=== PATIENT | female | born 1970 | race African-American/Black ===

== ENCOUNTER 2016-05-08 20:44 | Emergency (ER) | payer BC, OTHER ==
[~2016-05-08] VITALS: Ht 160 cm; Wt 81.7 kg
[2016-05-08 21:11] LABS: URINE BILIRUBIN NEGATIVE (Negative); URINE BLOOD TRACE (Negative); URINE COLOR YELLOW; URINE GLUCOSE-RANDOM* NEGATIVE (Negative); URINE KETONES NEGATIVE (Negative); URINE LEUKOCYTES-REFLEX TRACE (Negative); URINE PROTEIN (DIPSTICK) NEGATIVE (Negative); URINE SPECIFIC GRAVITY 1.025 (1.003-1.035); URINE UROBILINOGEN 0.2 E.U./dl (0.2-1.0)
[2016-05-08] MEDS ORDERED: XANAX 0.25 MG0.25 MG PO (21:33)
[2016-05-08] MEDS ORDERED: SINGULAIR 10 MG10 M1 PO (21:34)
[2016-05-08] MEDS ORDERED: TOPAMAX50 MG (21:34)
[2016-05-08] MEDS ORDERED: AZELASTINE137 MCG/0. NS (21:34)
[2016-05-08] MEDS ORDERED: FLEXERIL PO (21:34)
[2016-05-08] MEDS ORDERED: SERTRALINE HCL100 MG PO (21:34)
[2016-05-08 21:35] LABS: ABSOLUTE NEUTROPHILS 5.3 thou/uL (1.4-8.2); EOSINOPHILS 2.4 % (0.0-3.0); HEMATOCRIT 37.9 % (37.0-47.0); HEMOGLOBIN 12.5 gm/dL (12.0-15.0); LYMPHOCYTES 38.6 % (24.0-44.0); MCH 23.8 pg (26.0-34.0); MCHC 32.9 g/dL (28.0-37.0); MCV 72.5 fL (80.0-100.0); MONOCYTES 7.6 % (1.0-8.0); PLATELET COUNT 295 thou/uL (150-400); POLYS 50.4 % (36.0-66.0); RBC 5.23 mil/uL (4.20-5.00); RDW 13.9 % (10.5-14.5); WBC 10.5 thou/uL (4.0-11.0)
[2016-05-08] MEDS ORDERED: WELLBUTRIN SR150 MG PO (21:35)
[2016-05-08] MEDS ORDERED: FLONASE 0.05%50 MCG (21:35)
[2016-05-08] MEDS ORDERED: VENTOLIN HFA 1818 GM (21:35)
[2016-05-08] MEDS ORDERED: ZOLPIDEM TARTRA10 MG PO (21:35)
[2016-05-08 21:36] LABS: MANUAL DIFF NO
[2016-05-08 21:45] LABS: CALCIUM 9.4 mg/dL (8.5-10.1); CREATININE 0.7 mg/dL (0.6-1.3); POTASSIUM 3.9 mmol/L (3.5-5.1)
[2016-05-08 21:50] LABS: ALBUMIN 4.1 g/dL (3.4-5.0); TOTAL BILIRUBIN 0.3 mg/dL (<0.1-1.0); TOTAL PROTEIN 7.9 g/dL (6.4-8.2)
[2016-05-08] MEDS ORDERED: LEVSIN0.125 MG PO (23:05)
[2016-05-08] MEDS ORDERED: NORCO 5-325 TA1 EACH PO (23:05)
[2016-05-08 23:34] VITALS: BP 124/86
== END 2016-05-08 23:37 | disposition home or self-care (01) ==
LOC: ER 20:44
PROVIDERS: Emergency Medicine
DX: K58.0 Irritable bowel syndrome with diarrhea (principal); K66.0 Peritoneal adhesions (postprocedural) (postinfection); M79.7 Fibromyalgia; J44.9 Chronic obstructive pulmonary disease, unspecified; Z90.710 Acquired absence of both cervix and uterus

== ENCOUNTER 2016-06-03 11:03 | Inpatient (IN) | payer BC, OTHER ==
[~2016-06-03] VITALS: Ht 160 cm; Wt 92.5 kg
--- NOTE | ~2016-06-03 | 2DMMODE ---
[facility] [address] [place] [address] 2 D/M-MODE ECHOCARDIOGRAM Name: FINNMINO Room #: 457-P [facility] IN .R.#: [id number] Admission: 06/03/16 Attend Phys: Austin Rivero, Discharge: 06/05/16 Date of : 74 Date of Service: 06/05/16 1440 Report #: [id number] THIS REPORT FOR: //name// APPROVED REPORT Study performed: 06/05/2016 12:20:28 EXAM: Comprehensive 2D, Doppler, and color-flow Echocardiogram Patient Location: Bedside Room #: 457 Blood Pressure: 132/97 mmHg HR: 119 bpm Other Information Study Quality: GoodFair Indications COPD R/O CVA Echo Enhancing Agent Agent/Amount Used: Agitated Saline cc 2D Dimensions LVEF(%): 57.40 (>50%) IVSd: 7.56 (7-11mm) LVOT Diam: 23.00 (18-24mm) LVDd: 53.09 mm PWd: 9.43 (7-11mm) Ascending Ao: 32.74 (22-36mm) LVDs: 36.93 (25-40mm) Aortic Root: 34.57 mm Ren's LVEF: 57.40 % Volumes Left Atrial Volume (Systole) Single Plane 4CH: 35.94 mL Single Plane 2CH: 30.50 mL LA ESV Index: 18.00 mL/m2 Mitral Valve E/A Ratio: 0.7 MV Decel. Time: 146.28 ms MV E Max Charlie.: 0.53 m/s MV A Charlie.: 0.74 m/s [facility] [address] [address] 2 D/M-MODE ECHOCARDIOGRAM Name: MINO BRISENO Room #: 457-P [facility]#: [id number] Admission: 06/03/16 Attend Phys: Austin Rivero, Discharge: 06/05/16 Date of : 74 Date of Service: 06/05/16 1440 Report #: [id number] MV PHT: 42.42 ms Pulmonary Valve PV Peak Charlie.: 1.08 m/s PV Peak Gr.: 4.66 mmHg Pulmonary Vein P Vein S: 68.2 m/s P Vein D: 40.5 m/s P Vein A Dur.: 32.4 m/s Tricuspid Valve RAP Estimate: 5.00 mmHg Left Ventricle The left ventricle is normal size. There is normal LV segmental wall motion. There is normal left ventricular wall thickness. Left ventricular systolic function is normal. The left ventricular ejection fraction is within the normal range. LVEF is 50-55%. Grade I - abnormal relaxation pattern. Right Ventricle The right ventricle is normal size. The right ventricular systolic function is normal. Atria The left atrium size is normal. Injection of bubbles documented no interatrial shunt. The right atrium size is normal. Aortic Valve The aortic valve is normal in structure. Bioprosthetic aortic valve is present. No aortic regurgitation is present. There is no aortic valvular stenosis. Mitral Valve The mitral valve is normal in structure. There is no mitral valve regurgitation noted. No evidence of mitral valve stenosis. Tricuspid Valve The tricuspid valve is normal in structure. There is no tricuspid valve regurgitation noted. Pulmonic Valve The pulmonary valve is normal in structure. There is no pulmonic valvular regurgitation. Great Vessels The aortic root is normal in size. IVC is normal in size and [facility] [address] [place] [address] 2 D/M-MODE ECHOCARDIOGRAM Name: MINO BRISENO Room #: 457-P [facility] IN ..#: [id number] Admission: 06/03/16 Attend Phys: Austin Rivero, Discharge: 06/05/16 Date of : 74 Date of Service: 06/05/16 1440 Report #: [id number] collapses with >50% inspiration Pericardium There is no pericardial effusion. <Conclusion> Left ventricular systolic function is normal. There is normal LV segmental wall motion. LVEF 50-55%. Grade I diastolic dysfunction The aortic valve is normal in structure. No aortic regurgitation or stenosis The mitral valve is normal in structure. No mitral insufficiency. Pulmonary artery pressure could not be reliably ascertained. There is no pericardial effusion. <ELECTRONICALLY SIGNED> By: Shan Xavier MD, FACC 06/05/16 1440 39 39 Shan Xavier MD, FAC /INF
--- NOTE | ~2016-06-03 | EKG ---
[place] [address] [place] [address] ELECTROCARDIOGRAM REPORT Name: CECY BRISENOLLE Hany Room #: 457-P ADM IN M.R.#: [id number] Admission: 06/03/16 Attend Phys: Halie Hernandez MD Discharge: Date of : 74 Report #: [id number] THIS REPORT FOR: //name// [facility] ED Test Date: 2016-06-03 Test Time: 11:45:30 Pat Name: MINO BRISENO Department: Room: [facility] Gender: F Nut Packer: Dalton BELCHER : 1970 Requested By: Benigno Berg Order Number: [id number] MD: Shan Xavier Measurements Intervals [place] Rate: 98 P: 50 CA: 158 QRS: 20 QRSD: 85 T: 16 QT: 358 QTc: 458 Interpretive Statements Sinus rhythm Left ventricular hypertrophy Compared to ECG 11/24/2008 15:33:35 No significant changes Electronically Signed On 06-04-2016 15:04:49 CDT by Shan Xavier [email or web address] <ELECTRONICALLY SIGNED> By: Shan Xavier MD, [facility] 06/04/16 1504 1145 [id number] Shan Xavier MD, [facility] /EPI
[~2016-06-03 11:03] MED LIST: AZELASTINE137 MCG/0. NS; FLEXERIL PO; FLONASE 0.05%50 MCG; LEVSIN0.125 MG PO; NORCO 5-325 TA1 EACH PO; SERTRALINE HCL100 MG PO; SINGULAIR 10 MG10 M1 PO; TOPAMAX50 MG; VENTOLIN HFA 1818 GM; WELLBUTRIN SR150 MG PO; XANAX 0.25 MG0.25 MG PO; ZOLPIDEM TARTRA10 MG PO
[2016-06-03 11:04] VITALS: BP 154/95
[2016-06-03 11:30] LABS: HEMOGLOBIN 12.2 gm/dL (12.0-15.0); MCH 23.4 pg (26.0-34.0); MCHC 32.1 g/dL (28.0-37.0); RBC 5.21 mil/uL (4.20-5.00); WBC 7.5 thou/uL (4.0-11.0)
[2016-06-03 11:40] LABS: ANION GAP 10 mmol/L (7-16); BUN 9 mg/dL (7-18); CALCIUM 8.9 mg/dL (8.5-10.1); CHLORIDE 104 mmol/L (98-107); CO2 26 mmol/L (21-32); CREATININE 0.6 mg/dL (0.6-1.0); GLUCOSE 126 mg/dL (74-106); POTASSIUM 3.9 mmol/L (3.5-5.1); SODIUM 140 mmol/L (136-145)
[2016-06-03 11:43] LABS: APTT 25.8 Seconds (24.5-32.8); PROTIME 10.5 Seconds (9.3-11.4)
[2016-06-03 11:48] LABS: TROPONIN-I < 0.04 ng/mL (<0.04-0.07)
[2016-06-03] MEDS ORDERED: WELLBUTRIN SR150 MG PO (12:12)
[2016-06-03 13:35] VITALS: BP 145/90
[2016-06-03 14:28] VITALS: BP 158/96
[2016-06-03 20:00] VITALS: BP 133/96
[2016-06-03 21:32] LABS: AMP/METHAMP Negative (Negative); BARBITURATES Negative (Negative); BENZODIAZEPINES Negative (Negative); COCAINE Negative (Negative); METHADONE Negative (Negative); OPIATES Negative (Negative); PCP Negative (Negative); THC Negative (Negative)
[2016-06-04 05:37] VITALS: BP 149/69
[2016-06-04 08:11] VITALS: BP 125/91
[2016-06-04 13:14] LABS: CHOLESTEROL 236 mg/dL (<200); HDL CHOLESTEROL 39 mg/dL (>40); LDL CHOLESTEROL 166 mg/dL (<100); TC:HDL 6.1 Ratio (Not establshd); TRIGLYCERIDE 157 mg/dL (<150); VLDL 31 mg/dL (<40)
[2016-06-04 15:40] VITALS: BP 131/86
[2016-06-04 20:00] VITALS: BP 149/91
[2016-06-05 04:00] VITALS: BP 110/68
[2016-06-05 08:40] VITALS: BP 143/98
[2016-06-05] MEDS ORDERED: LIPITOR10 MG PO (10:36)
[2016-06-05 11:11] VITALS: BP 143/98
[2016-06-06 12:07] LABS: GLYCOHEMOGLOBIN (HGB A1C) 5.3 % (4.8-5.6)
== END 2016-06-05 14:31 | disposition home or self-care (01) | DRG 103 ==
LOC: ER 11:03 → 4W 12:59 → EROBS 12:59 → 4W 14:06
PROVIDERS: Emergency Medicine; Psychiatry & Neurology Neurology
DX: G43.909 Migraine, unspecified, not intractable, without status migrainosus (principal); K58.9 Irritable bowel syndrome, unspecified; J44.9 Chronic obstructive pulmonary disease, unspecified; R20.0 Anesthesia of skin; M79.7 Fibromyalgia; F17.210 Nicotine dependence, cigarettes, uncomplicated; Z82.49 Family history of ischemic heart disease and other diseases of the circulatory system; Z71.6 Tobacco abuse counseling; Z90.710 Acquired absence of both cervix and uterus; Z79.899 Other long term (current) drug therapy
CPT/HCPCS: 10045

== ENCOUNTER 2016-11-09 17:33 | Emergency (ER) | payer BC, OTHER ==
[~2016-11-09] VITALS: Ht 160 cm; Wt 87.1 kg
--- NOTE | ~2016-11-09 | EKG ---
[address] [place] [address] ELECTROCARDIOGRAM REPORT Name: BRISENOMINO Hany Room #: [facility]#: [id number] Admission: 11/09/16 Attend Phys: Discharge: 11/09/16 Date of : 74 Report #: [id number] THIS REPORT FOR: //name// [facility] ED Test Date: 2016-11-09 Test Time: 17:40:45 Pat Name: MINO BRISENO Department: Room: Gender: F Financial Planning Consultant: CARINE : 1970 Requested By: Melisa Corrales Order Number: [id number] MD: Rishi Hallman Measurements Intervals [place] Rate: 93 P: 45 UT: 164 QRS: 21 QRSD: 89 T: 27 QT: 396 QTc: 493 Interpretive Statements Sinus rhythm Abnormal R-wave progression, early transition Left ventricular hypertrophy Borderline prolonged QT interval Compared to ECG 06/03/2016 11:45:30 No significant changes Electronically Signed On 11-09-2016 21:59:48 CDT by Rishi Hallman [email or web address] <ELECTRONICALLY SIGNED> By: Rishi Hallman MD 11/09/16 2159 [id number] Rishi Hallman MD /CHARLIE
[~2016-11-09 17:33] MED LIST changes: +LIPITOR10 MG PO
[2016-11-09 18:15] LABS: ABSOLUTE NEUTROPHILS 3.2 thou/uL (1.4-8.2); BASOPHILS 1.2 % (0.0-2.0); EOSINOPHILS 1.7 % (0.0-3.0); HEMATOCRIT 33.6 % (37.0-47.0); LYMPHOCYTES 45.7 % (24.0-44.0); MANUAL DIFF NO; MCH 23.6 pg (26.0-34.0); MCHC 32.6 g/dL (28.0-37.0); MCV 72.3 fL (80.0-100.0); MONOCYTES 9.1 % (1.0-8.0); PLATELET COUNT 360 thou/uL (150-400); POLYS 42.3 % (36.0-66.0); RBC 4.64 mil/uL (4.20-5.00); RDW 13.7 % (10.5-14.5); WBC 7.5 thou/uL (4.0-11.0)
[2016-11-09 18:22] LABS: ANION GAP 9 mmol/L (7-16); BUN 13 mg/dL (7-18); CALCIUM 9.1 mg/dL (8.5-10.1); CHLORIDE 104 mmol/L (98-107); CO2 24 mmol/L (21-32); CREATININE 0.9 mg/dL (0.6-1.0); GLUCOSE 93 mg/dL (74-106); POTASSIUM 3.7 mmol/L (3.5-5.1); SODIUM 137 mmol/L (136-145)
[2016-11-09 18:32] LABS: TROPONIN-I < 0.04 ng/mL (<0.04-0.07)
[2016-11-09] MEDS ORDERED: NORCO 5-325 TA1 EACH PO (20:35)
== END 2016-11-09 20:46 | disposition home or self-care (01) ==
LOC: ER 17:33
PROVIDERS: Emergency Medicine
DX: R07.89 Other chest pain (principal); F17.210 Nicotine dependence, cigarettes, uncomplicated; F10.99 Alcohol use, unspecified with unspecified alcohol-induced disorder; J44.9 Chronic obstructive pulmonary disease, unspecified; Z90.710 Acquired absence of both cervix and uterus

== ENCOUNTER → 2016-11-29 | Outpatient (CLI) | payer BC, OTHER ==
[~2016-11-29] VITALS: Ht 160 cm; Wt 87.1 kg
[~2016-11-29] MED LIST changes: +AMBIEN 5 MG TABL5 M1 PO; +ASPIR 8181 M1 PO; +BEVESPI AEROS10.7 GM INH; +CETIRIZINE HCL5 MG PO; +COMBIVENT RESPIM4 GM INH; +LISINOPRIL20 MG PO; +RANITIDINE 150150 M1 PO; +REGLAN 10 MG TA10 MG PO; +TESSALON PERLE100 MG PO
--- NOTE | ~2016-11-29 | CATHLAB ---
[facility] [address] [address] INVASIVE PROCEDURE REPORT Name: MINO BRISENO Room #: REG [facility]#: [id number] Admission: 11/29/16 Attend Phys: Philip Woodson MD Discharge: Date of : 74 Date of Service: 11/29/16 1324 Report #: [id number] THIS REPORT FOR: //name// APPROVED REPORT Patient Details Patient Status: Out-Patient Room #: The patient is a 46 year-old female Event Personnel Philip Woodson Dormitory Counselor, Monico Ibrahim RN, Zehra Manning Sandifer, David Monitor Procedures Performed Left Heart Cath w/or w/o Coronaries [id number] [facility] Indication Dyspnea, Positive stress test, Chest pain Risk Factors Hypercholesterolemia, Hypertension, Diabetes Procedure Narrative The Right Groin^ was infiltrated with 1% Lidocaine subcutaneous anesthesia. A PINNACLE 4FR Sheath #[id number] sheath was inserted into the RFA^. Coronary angiography was performed using coronary diagnostic catheters. The right coronary system was accessed and visualized with a JR4 catheter. The left coronary system was accessed and visualized with a JL4 catheter. The left ventricle was accessed and visualized with a PIGTAIL catheter. Left ventricular/Aortic Valve gradient assessed via catheter pullback. Left ventriculogram was performed in 30 degree projection. Hemostasis was obtained with manual pressure following sheath removal without any complications. The patient tolerated the procedure well and there were no complications associated with the procedure. There was no hematoma. Intraoperative Conscious Sedation Sedation start time: 12:03 Case end Time: 12:11 Fentanyl 25.0 mcg Versed 1.0 mg Fluoro Time: 2.00 minutes Dose: 502 mGy Contrast Type and Amount: Omnipaque 10 ml [facility] [address] [place] [address] INVASIVE PROCEDURE REPORT Name: MINO BRISENO Room #: REG [facility]#: [id number] Admission: 11/29/16 Attend Phys: Philip Woodson MD Discharge: Date of : 74 Date of Service: 11/29/16 1324 Report #: [id number] Coronary Angiography The patient's coronary anatomy is right dominant. Diagnostic Cath Left Main Large-caliber vessel, no flow limiting lesions. LAD Moderate size caliber vessel, traveling down the anterior wall and wrapping around the apex. No evidence for flow limiting lesions. There are minimal luminal irregularities in the mid segment. Diagonal 1 Patent, no flow limiting lesions Circumflex Moderate size caliber vessel, no flow limiting lesions OM1 Small size caliber vessel, no flow limiting lesions. OM2 Moderate size caliber vessel, no flow limiting lesions. Right Coronary Dominant vessel, no flow limiting lesions. R PDA No flow-limiting lesions. RPLV No flow-limiting lesions. Left Ventriculography The left ventricle is normal in size with lownormal contractility. The left ventricular ejection fraction is estimated to be 45-50%. Hemodynamics The aortic pressure is 128/86 mmHg with a mean of 99 mmHg. The left ventricular pressure is 142/12 mmHg with a mean of mmHg. The left ventricular end diastolic pressure is 21 mmHg. There was no gradient across the aortic valve upon pullback. Pullback from the left ventricle to the aorta revealed no gradient across the aortic valve. Conclusion 1. Angiographically normal coronary arteries, there may be minimal luminal irregularities in the mid LAD segment. 2. Borderline lownormal LV systolic function. 3. Recommend medical therapy. <ELECTRONICALLY SIGNED> By: Philip Woodson MD 11/29/16 1324 23 23 Philip Woodson MD /INF
--- NOTE | ~2016-11-29 | EKG ---
[place] [address] [facility] [place] [address] ELECTROCARDIOGRAM REPORT Name: MINO BRISENO [id number] Admission: 11/29/16 Attend Phys: Philip Woodson MD Discharge: Date of : 74 Report #: [id number] THIS REPORT FOR: //name// [facility] Test Date: 2016-11-29 Test Time: 08:33:35 Pat Name: MINO BRISENO Department: Room: Gender: F Automotive Lot Attendant: ENRICO : 1970 Requested By: Philip Woodson Order Number: [id number] MD: Shan Xavier Measurements Intervals [place] Rate: 87 P: 39 PA: 165 QRS: 17 QRSD: 93 T: 18 QT: 380 QTc: 457 Interpretive Statements Sinus rhythm Left ventricular hypertrophy Nonspecific ST and T wave abnormality Compared to ECG 11/09/2016 17:40:45 No significant change was found Electronically Signed On 11-29-2016 8:57:46 CDT by Shan Xavier [email or web address] <ELECTRONICALLY SIGNED> By: Shan Xavier MD, [facility] 11/29/16 0857 2 2 Shan Xavier MD, [facility] /EPI
[2016-11-29 08:45] VITALS: BP 115/77
[2016-11-29 08:49] LABS: HEMOGLOBIN 11.1 gm/dL (12.0-15.0); MCHC 31.6 g/dL (28.0-37.0); MCV 72.7 fL (80.0-100.0); RBC 4.82 mil/uL (4.20-5.00); RDW 13.7 % (10.5-14.5); WBC 4.8 thou/uL (4.0-11.0)
[2016-11-29 09:02] LABS: CALCIUM 9.4 mg/dL (8.5-10.1); CREATININE 0.7 mg/dL (0.6-1.0)
== END | disposition home or self-care (01) ==
LOC: CATH 07:56
PROVIDERS: Internal Medicine Cardiovascular Disease
DX: I25.10 Atherosclerotic heart disease of native coronary artery without angina pectoris (principal); I10 Essential (primary) hypertension; E11.9 Type 2 diabetes mellitus without complications; E78.00 Pure hypercholesterolemia, unspecified; J44.9 Chronic obstructive pulmonary disease, unspecified; M79.7 Fibromyalgia; Z82.49 Family history of ischemic heart disease and other diseases of the circulatory system; Z98.890 Other specified postprocedural states; Z90.710 Acquired absence of both cervix and uterus; Z79.899 Other long term (current) drug therapy; Z86.73 Personal history of transient ischemic attack (TIA), and cerebral infarction without residual deficits; Z79.82 Long term (current) use of aspirin